=== PATIENT | male | born 1965 | race Caucasian/White ===

== ENCOUNTER 2018-12-18 11:59 | Outpatient (CLI) | payer OTHER ==
[2018-12-18 12:19] LABS: Bilirubin Negative (Negative); Blood, Urine Small (Negative); Clarity Clear (Clear); Glucose, Urine (Dipstick) Negative (Negative); Leukocyte Negative (Negative); Nitrite Negative (Negative); Protein, Urine (Dipstick) Negative (Neg-Trace); Urobilinogen 0.2 mg/dL (Less than 2)
[2018-12-18 12:27] LABS: Bacteria/HPF Rare-Few HPF (None Seen); RBC/HPF 0-3 HPF (0-3); Squamous Epithelial 0-3 HPF (0-3); WBC/HPF 0-3 HPF (0-3)
--- NOTE | 2018-12-18 14:42 | CT ---
CT of abdomen and pelvis: 12/18/2018 COMPARISON: None HISTORY: Right flank pain TECHNIQUE: Axial CT imaging at 5 mm intervals from lung bases through pubic symphysis without contras t. Coronal reformatted imaging obtained. FINDINGS: Lack of contrast media limits assessment of the viscera, bowel, vascular structures, and fo r lymphadenopathy. Mild increased linear density in the right middle lobe suggests scar. No free intraperitoneal air or fluid. There is a low-density lesion in the inferior aspect of the right lobe of the liver measuring 1.1 cm, too small to characterize. This is adjacent to the gallbladder and could represent a focal area of fatty infiltration. A lateral tiny hypodensity within the right lobe of the liver on image 22 noted, also too small to characterize. The gallbladder, spleen, pancreas, and adrenal glands appear grossly unremarkable. There is mild right-sided perinephric stranding. Right-sided hydronephrosis and hydroureter noted sec ondary to an obstructing stone at the right ureterovesicular junction measuring approximately 3 mm. There is a punctate intrarenal calculus on the right as well. 3 nonobstructing intrarenal calculi are noted on the left, the largest noted in the lower pole measur ing approximately 5-6 mm. There is no evidence for obstructive uropathy on the left. There is a fat-containing inguinal hernia on the left. There is a prominent inguinal hernia on the ri ght containing nonobstructed small bowel and fat. The inguinal hernia on the right measures at least 7 cm in craniocaudal dimension and 5.9 cm in transverse dimension. There is a small hiatal bernardo ia noted. There is diverticulosis of the colon, especially the descending colon and sigmoid colon, with no evid ence for diverticulitis. The appendix is visualized and is within normal limits. There is atherosclerotic calcification of the infrarenal abdominal aorta and the arterial structures of the pelvis. Review of the osseous structures demonstrates multilevel lower lumbar spine facet hypertrophic change . No worrisome lytic or blastic bone lesions. IMPRESSION: Obstructive uropathy on the right secondary to a 3 mm stone within the distal right urete r at the ureterovesicular junction. Bilateral intrarenal calculi noted. Colonic diverticulosis without evidence for diverticulitis. Prominent inguinal hernias bilaterally, right larger than left, the right inguinal hernia containing fat and nonobstructed small bowel.
== END 2018-12-18 12:00 | disposition home or self-care (01) ==
LOC: MADLABBHPM 11:59
PROVIDERS: ATTEND Family Medicine
DX: N20.0 Calculus of kidney (principal)
CPT/HCPCS: 74176; 81001; 87086

== ENCOUNTER 2021-02-19 11:00 | Outpatient (CLI) | payer OTHER ==
[2021-02-19 11:31] LABS: #Basophils 0.1 thou/uL (0.0-0.2); #Eosinphils 0.2 thou/uL (0.0-0.7); #Lymphocytes 1.8 thou/uL (1.20-3.40); #Monocytes 0.7 thou/uL (0.11-0.59); #Neutrophils 4.4 thou/uL (1.40-6.50); %Basophils 1.4 % (0.0-1.0); %Lymphocytes 24.7 % (21.0-51.0); %Monocytes 9.5 % (0.0-10.0); %Neutrophils 61.5 % (42.0-75.0); Hemoglobin 15.9 g/dL (14.0-18.0); Mean Corpuscular HGB CONC 31.1 g/dL (32.0-36.0); Mean Corpuscular Hemoglobin 30.8 pg (27.0-31.0); Mean Corpuscular Volume 98.9 fL (78.0-98.0); Mean Platelet Volume 8.4 fL (7.4-10.4); Platelet Count 217 thou/uL (130-400); Red Blood Cell (RBC) Count 5.16 mill/uL (4.70-6.10); White Blood Cell (WBC) Count 7.2 thou/uL (4.8-10.8)
[2021-02-19 12:19] LABS: ALT (SGPT) 18 U/L (8-55); AST (SGOT) 19 U/L (5-34); Albumin 4.1 g/dL (3.5-5.0); Alkaline Phosphatase 75 U/L (40-110); Anion Gap 12 mmol/L (10-20); BUN (Urea Nitrogen) 11 mg/dL (8.4-25.7); Bilirubin, Total 0.6 mg/dL (0.2-1.2); Calc. Creatinine Clearance 0 mL/min (70-130); Calcium 9.7 mg/dL (7.8-10.44); Carbon Dioxide 27 mmol/L (22-29); Cardiac Risk 3.3 (Less than 4.5); Chloride 105 mmol/L (98-107); Cholesterol 136 mg/dl (< 200 Desired); Globulin 2.8 g/dL (2.4-3.5); Glucose 91 mg/dL (70-105); HDL Cholesterol 41 mg/dL (>60 Neg Risk); LDL Cholesterol, Calculated 84 mg/dL; Protein, Total 6.9 g/dL (6.0-8.3); Sodium 139 mmol/L (136-145); Triglycerides 56 mg/dL (Less than 150)
[2021-02-19 17:25] LABS: Hemoglobin A1c 5.4 % (4.0-6.0)
== END 2021-02-19 11:01 | disposition home or self-care (01) ==
LOC: MADLAB 11:00
PROVIDERS: ATTEND Family Medicine
DX: Z00.01 Encounter for general adult medical examination with abnormal findings (principal); R05 Cough; E66.9 Obesity, unspecified
CPT/HCPCS: 36415; 71046; 80053; 80061; 83036; 84443; 85025